=== PATIENT | female | born 1990 | race Hispanic/Latino ===

== ENCOUNTER 2019-02-19 13:30 | Emergency (ER) | payer BC, OTHER ==
--- NOTE | 2019-02-19 14:42 | Diagnostic Imaging Report ---
ANKLE 3 + VIEWS RIGHT - 3 views HISTORY: Pain. Twisting injury. Lateral malleolus pain. COMPARISON: None available. FINDINGS: Bones: No acute displaced fracture. Osseous alignment is within normal limits. Plantar calcaneal enthesophyte. Joints: The joint spaces are well-maintained. Soft tissues: Diffuse soft tissue swelling around the ankle. IMPRESSION: 1. No acute osseous abnormality. 2. Diffuse soft tissue swelling around the ankle. Signed by: Dr. Sahil Nix M.D. on 02/19/2019 2:39 PM
[2019-02-19 15:34] VITALS: BP 117/57
== END 2019-02-19 15:41 | disposition home or self-care (01) ==
LOC: ER 13:30
DX: S93.401A Sprain of unspecified ligament of right ankle, initial encounter (principal); X50.1XXA Overexertion from prolonged static or awkward postures, initial encounter; Y93.01 Activity, walking, marching and hiking; Y92.017 Garden or yard in single-family (private) house as the place of occurrence of the external cause
CPT/HCPCS: 99283